=== PATIENT | male | born 1950 | race Caucasian/White ===

== ENCOUNTER 2025-04-30 09:35 | Outpatient (CLI) | payer MEDICARE, SELFPAY ==
--- NOTE | 2025-06-01 13:25 | WPDSLEEPSTUD ---
Sleep Study Date of Study: 04/30/25 Ordering Provider: Wilbur Yoder APRN Interpreting Physician: Tawana Borjas DO Sleep Study Type: Polysomnogram Height: 1.8 m Weight: 108.409 kg Body Mass Index: 33.3 Neck Circumference (inches): 17 [place]: 9 Reason for Sleep Study Required a new sleep study to get new CPAP equipment Sleep History The patient is a 75-year-old male who had a sleep study ordered by the pulmonary group for evaluation of sleep apnea. The patient was diagnosed with sleep apnea over 20 years ago and has been on CPAP since that time. He denies sweating excessively at night. He denies having heart palpitations or irregular heartbeats during the night. He occasionally falls asleep during the day but never while driving. He denies sleep paralysis, cataplexy, and hypnagogic/hypnopompic hallucinations. He denies having trouble at school or work due to sleepiness. He denies feeling afraid of going to sleep. He denies having nightmares. He occasionally remembers his dreams. He occasionally has thoughts racing through his mind. He denies feeling sad or depressed. He occasionally feels anxious. He denies having muscular tension. He occasionally notices parts of his body jerk. He denies kicking during the night. He denies having crawling and aching feelings in his legs but occasionally has leg pain during the night. He denies grinding his teeth during sleep and denies awakening with morning jaw pain. He is occasionally bothered by pain during the day but never awakened by pain during the night. He occasionally wakes up feeling stiff in the morning. He denies waking up with sore or aching muscles. He occasionally wakes up with pain in the neck, spine, and other joints. He goes to bed at 11 p.m. every night. It takes him 30 minutes to fall asleep. He wakes up twice throughout the night to urinate and is able to fall back asleep within 30 minutes. He wakes up at 7 a.m. every morning. He typically gets 6 hours of sleep per night. He will stay in bed for 30 minutes after waking up in the morning. He currently lives with his . He denies consuming any caffeinated beverages within 2 hours of bedtime. He denies engaging in physical exercise before bedtime. He will read before falling asleep. He denies watching television before falling asleep. He will take naps in the afternoon or the evening, but they are not refreshing. He consumes one glass of caffeinated tea per day. He denies tobacco, alcohol, and recreational drug use. [facility] Past Medical History Medical History Glaucoma Cataract Asthma Vitamin B12 deficiency Diabetes mellitus Prostate CA RINA (obstructive sleep apnea) Hypertension Essential tremor Dyslipidemia Hypothyroidism Social History Social History Smoking status: Never smoker Alcohol intake: current Alcohol use details: social 1 drink/month Substance use: never Medications Home Medications ?Medication ?Instructions ?Recorded ?Confirmed ?Type atorvastatin 40 mg tablet (Lipitor) 40 mg PO DAILY 03/02/25 03/05/25 History cyanocobalamin (vitamin B-12) 1,000 mcg PO MONTHLY 03/02/25 03/05/25 History 1,000 mcg/15 mL oral liquid glimepiride 2 mg tablet 2 mg PO QAM 03/02/25 03/05/25 History latanoprost 0.005 % eye drops 1 drp EACH EYE QPM 03/02/25 03/05/25 History levothyroxine 50 mcg capsule 50 mcg PO DAILY 03/02/25 03/05/25 History metformin 1,000 mg tablet 1,000 mg PO DAILY 03/02/25 03/05/25 History semaglutide 1 mg/dose (4 mg/3 mL) 1 mg subcut WEEKLY 03/02/25 03/05/25 History subcutaneous pen injector eszopiclone 3 mg tablet 3 mg PO ONCE #1 tablet 03/05/25 03/05/25 Rx Sleep Procedure A full night polysomnogram using the [employer] multi-channel system recorded the standard physiologic parameters including EEG, EOG, submentalis EMG, anterior tibialis EMG, EKG, body position, nasal and oral airflow using nasal pressure sensor and thermistor.? Respiratory parameters of chest and abdominal movements were recorded with Respiratory Inductance Plethysmography belts. Oxygen saturation was recorded by pulse oximetry. Video monitoring was also performed. Sleep stages, periodic limb movements, and EEG arousals were scored in 30 second epochs according to the criteria of the AASM Scoring Manual. The Apnea-Hypopnea Index was calculated using CMS guidelines for definition of hypopnea with 4% O2 desaturations while scoring respiratory events. Sleep Architecture The total recording time was 399.4 minutes.? The total sleep time was 255.5 minutes. Sleep latency was 13.9 minutes. REM latency was 143.0 minutes. Sleep efficiency was 64.0%. The patient had 38 awakenings for an awakening index of 8.9. Wake after sleep onset time was 130.0 minutes. The patient spent 42.5 minutes, 16.6% of total sleep time in Stage N1. The patient spent 183.0 minutes, 71.6% in Stage N2. The patient spent 16.0 minutes, 6.3% in Stage N3. The patient spent 14.0 minutes, 5.5% in Stage REM sleep. Respiratory Analysis The patient had 14 hypopneas, 8 obstructive apneas, 1 mixed apnea and 16 central apneas for an overall Apnea Hypopnea Index of 9.2. The REM Apnea Hypopnea Index was 0. The NREM Apnea Hypopnea Index was 9.7. The patient had a Central Apnea Hypopnea Index of 3.8. There was no evidence of [place] Respirations. Arousals There were 74 total arousals for an arousal index of 17.4. There were 25 spontaneous arousals for an index of 5.9. There were 17 arousals due to respiratory events for an index of 4.0. There were 30 arousals due to periodic limb movements for an index of 7.0.? There were 2 arousals due to isolated limb movements for an index of 0.5. Periodic Limb Movements The patient had 14 isolated limb movements with an index of 3.3. The patient had 699 periodic limb movements with an index of 164.1, which is elevated (normal < 15). Patient had a total of 713 limb movements with a total limb movement index of 167.4. Oximetry Data The patient had an average oxygen saturation of 93.1% in sleep with a minimum oxygen saturation of 89.0% and a maximum oxygen saturation of 97.0%. The patient had 34 oxygen desaturations that were 4% or greater resulting in an Oxygen Desaturation Index of 8.0.? The patient spent 0.1 minutes of total sleep time with an oxygen saturation below 88%. Snoring Profile Moderate snoring was present intermittently throughout the study. Cardiac Profile The EKG showed normal sinus rhythm with occasional PACs and PVCs. The patient had an average pulse rate of 63.3 bpm with a minimum pulse of rate of 55.0 bpm and a maximum pulse rate of 106.0 bpm.? EEG Profile No signs of seizure activity seen. Assessment and Plan Assessment and Plan (1) RINA (obstructive sleep apnea): Code(s): G47.33 - Obstructive sleep apnea (adult) (pediatric) Status: Acute Assessment and Plan: The patient had an overall AHI of 9.2 with desaturation down to 89%. This is consistent with mild sleep apnea. Due to the patient's diabetes, he qualifies for treatment. I recommend that the patient have a CPAP Titration with the use of a hypnotic to ensure we obtain enough sleep data and find an optimal pressure setting. Data The data obtained during this sleep study is adequate for interpretation. Certification This sleep study has been reviewed by a board certified sleep medicine physician.
== END 2025-05-01 06:08 | disposition home or self-care (01) ==
LOC: ANHCSM 09:47
PROVIDERS: PCP Internal Medicine; Visit Provider Nurse Practitioner Family
DX: G47.33 Obstructive sleep apnea (adult) (pediatric) (principal); I10 Essential (primary) hypertension
CPT/HCPCS: 95810